=== PATIENT | female | born 1990 | race Native Hawaiian/Other Pacific Islander ===

== ENCOUNTER 2016-09-24 10:57 | Emergency (ER) | payer OTHER ==
[~2016-09-24] VITALS: Ht 162.6 cm; Wt 68.9 kg
== END 2016-09-24 11:39 | disposition home or self-care (01) ==
LOC: ED 10:57
DX: Z48.02 Encounter for removal of sutures (principal)
CPT/HCPCS: 99282

== ENCOUNTER 2017-02-23 13:37 | Emergency (ER) | payer OTHER ==
[~2017-02-23] VITALS: Ht 162.6 cm; Wt 68.0 kg
[2017-02-23 13:30] VITALS: TEMP 98.1
[2017-02-23 14:35] LABS: PLATELET COUNT 165 K/uL (152-353)
[2017-02-23 14:40] LABS: POTASSIUM 3.8 mmol/L (3.6-5.2); SODIUM 138 mmol/L (136-145)
[2017-02-23 15:00] VITALS: BP 118/72
== END 2017-02-23 15:27 | disposition home or self-care (01) ==
LOC: ED 13:37
PROVIDERS: Emergency Medicine
DX: R10.9 Unspecified abdominal pain (principal); G89.29 Other chronic pain
CPT/HCPCS: 80053; 81000; 82150; 83690; 83735; 85027; 86318; 99283